=== PATIENT | male | born 1940 | race Two or more races ===

== ENCOUNTER 2018-06-28 13:43 | Observation (INO) | payer OTHER ==
--- NOTE | 2018-06-28 14:12 | PDOC ---
History of Present Illness - General Chief Complaint: Lightheaded Stated Complaint: DIZZINESS Time Seen by Provider: 06/28/18 14:11 History Source: Patient Exam Limitations: No Limitations - History of Present Illness Initial Comments: 06/28/18 15:06 77 year old man with a history of bph, cataracts, HLD, valvular problem who presents who presents with episode of dizziness at 1240 that occurred after he was carrying a chest from the garage to the backyard and after he was in the yard watering plants this morning. The patient had some diaphoresis and shortness of breath at the time of the episode but denies any chest pain or nausea. He reports drinking some coffee and crackers this morning, but he normally has a sandwich. He has had a recent cold and was self treating with over the counter medications. At bedside he has resolution of symptoms but notes feeling weakness that he quanitfies as 5/10 and some shortness of breath Denies diarrhea, constipation, dysuria, hematuria Associate Vice President: Alexander Past History - Past Medical History Allergies/Adverse Reactions: Allergies Allergy/AdvReac Type Severity Reaction Status Date / Time No Known Allergies Allergy Verified 06/28/18 14:29 Home Medications: Ambulatory Orders Aspirin [ASA -] 81 mg PO DAILY 06/28/18 Candesartan Cilexetil [Atacand -] 16 mg PO DAILY 06/28/18 Dutasteride/Tamsulosin HCl [Dutasteride-Tamsulosin 0.5-0.4] 1 each PO DAILY 08/11 Rosuvastatin Calcium 20 mg PO DAILY 06/28/18 Review of Systems - Review of Systems Able to Perform ROS?: Yes Comments:: 06/28/18 15:15 GENERAL/CONSTITUTIONAL: No fever or chills. HEAD, EYES, EARS, NOSE AND THROAT: No change in vision. No ear pain or discharge. No sore throat. CARDIOVASCULAR: No chest pain RESPIRATORY: No cough, wheezing, or hemoptysis. GASTROINTESTINAL: No nausea, vomiting, diarrhea or constipation. GENITOURINARY: No dysuria, frequency, or change in urination. MUSCULOSKELETAL: No joint or muscle swelling or pain. No neck or back pain. SKIN: No rash NEUROLOGIC: No headache, vertigo, loss of consciousness, or change in strength/ sensation. ENDOCRINE: No increased thirst. No abnormal weight change HEMATOLOGIC/LYMPHATIC: No anemia, easy bleeding, or history of blood clots. ALLERGIC/IMMUNOLOGIC: No hives or skin allergy. Is the patient limited Dutch proficient: No *Physical Exam - Physical Exam Comments: 06/28/18 15:15 GENERAL: Awake, alert, and fully oriented, in no acute distress HEAD: No signs of trauma, normocephalic, atraumatic EYES: EOMI, sclera anicteric, conjunctiva clear ENT: oropharynx clear without exudates. Moist mucosa NECK: Normal ROM, supple LUNGS: No distress, speaks full sentences, clear to auscultation bilaterally HEART: Regular rate and rhythm, normal S1 and S2, + systolic murmur, no rubs or gallops, peripheral pulses normal and equal bilaterally. ABDOMEN: Soft, nontender, normoactive bowel sounds. No guarding, no rebound. No masses EXTREMITIES : Normal inspection, Normal range of motion, no edema. No clubbing or cyanosis. NEUROLOGICAL: Cranial nerves II through XII grossly intact. Normal speech, no focal sensorimotor deficits SKIN: Warm, Dry, normal turgor, no rashes or lesions noted ED Treatment Course - LABORATORY CBC & Chemistry Diagram: 06/28/18 14:52 06/28/18 14:52 Medical Decision Making - Medical Decision Making 06/28/18 15:16 77 year old man with a history of bph, cataracts, HLD, valvular problem who presents who presents with episode of dizziness at 1240 that occurred after he was carrying a chest from the garage to the backyard and after he was in the yard watering plants this morning. ED Course: ddx ibnlt: acs vs arrythmia vs electrolyte derangement vs infectious vs dehydration cbc, cmp, mg, phos, tsh, ekg, cxr, ua, ucx Patient with hpoyensions recorded as 89/52 in triage but at bedside 105/58 will fluid bolus ivf, slow rate considering mitral valve issue EKG: normal sinus rhythm HR 58, narrow QRS, ST and T wave segments and morphology normal. 06/28/18 17:09 patient with small uti will dose rocephin patient reassessed, tahcycardic to 100s, hypotensive to 93/44 second liter ns started. patient with contonued hypotension and undstable vitals will require admission. unclear as to etiology of hypotension/shock consider infectious/sepsis - will check rectal temp hypovolemia - fluid resusc ongoing consider cardiogenic shock - patient with known valvular disorder, will repeat ekg, bedside echo withuot cardiac tamponade blood pressure equivicol on bilateral arms rectal temp of 99.9 will dose tylenol and draw blood cultures trop negative 06/28/18 19:[address] Matos who recommends patient go to ICU or Tele Case discussed with resident Dr. Espinal ICU who will admit patient for further management. *DC/Admit/Observation/Transfer Diagnosis at time of Disposition: Hypotension - Discharge Dispostion Condition at time of disposition: Stable Decision to Admit order: Yes - Referrals - Patient Instructions - Post Discharge Activity
--- NOTE | 2018-06-28 15:02 | PDOC ---
Documentation entered by Silvio Harrell SCRIBE, acting as scribe for Tabatha Aparicio MD. Tabatha Aparicio MD: This documentation has been prepared by the shraddhaibeJulio Cesar Daniel, SCRIBE, under my direction and personally reviewed by me in its entirety. I confirm that the documentation accurately reflects all work, treatment, procedures, and medical decision making performed by me. Attending Attestation - Resident Resident Name: Rose Higginbotham - ED Attending Attestation I have performed the following: I have examined & evaluated the patient, The case was reviewed & discussed with the resident, I agree w/resident's findings & plan, Exceptions are as noted - HPI HPI: 77 yo M history HTN, valvular problem (uncertain which valve, but family states he is planning for repair soon) presents with episode of lightheadedness. He states he did not eat breakfast like he normally does, had to carry a toy chest from garage to yard, felt lightheadedness. Symptoms have improved now. He did not eat anything since. Denies SOB, cp, leg swelling. - Physicial Exam PE: GENERAL: Awake, alert, and fully oriented, in no acute distress HEAD: No signs of trauma EYES: PERRLA, EOMI, sclera anicteric, conjunctiva clear ENT: Auricles normal inspection, hearing grossly normal, nares patent, oropharynx clear without exudates. Dry mucosa NECK: Normal ROM, supple, no lymphadenopathy, JVD, or masses LUNGS: Breath sounds equal, clear to auscultation bilaterally. No wheezes, and no crackles HEART: Regular rate and rhythm. +Systolic murmur best heard over 5th ICS. ABDOMEN: Soft, nontender, normoactive bowel sounds. No guarding, no rebound. No masses EXTREMITIES: Normal range of motion, no edema. No clubbing or cyanosis. No cords, erythema, or tenderness NEUROLOGICAL: Cranial nerves II through XII grossly intact. Normal speech, normal gait. Motor and sensation intact SKIN: Warm, Dry, normal turgor, no rashes or lesions noted. - Medical Decision Making Pt with hypotension on arrival, will give fluids.
[2018-06-28 15:04] LABS: BASO % 0.2 % (0-2.0); EOS % 3.5 % (0-4.5); HEMATOCRIT 40.5 % (35.4-49); HEMOGLOBIN 12.6 GM/dL (11.7-16.9); LYMPH % 7.4 % (8-40); MCH 22.1 pg (25.7-33.7); MCHC 31.1 g/dl (32.0-35.9); MEAN CELL VOLUME 71.2 fl (80-96); MEAN PLT VOLUME 9.7 fl (7.5-11.1); MONO % 10.1 % (3.8-10.2); NEUT % 78.8 % (42.8-82.8); PLATELET COUNT 133 K/MM3 (134-434); RBC 5.69 M/mm3 (4.00-5.60); RDW 15.8 % (11.9-15.9); WHITE BLOOD COUNT 6.6 K/mm3 (4.0-10.0)
--- NOTE | 2018-06-28 15:08 | EKG ---
Test Reason : Blood Pressure : / mmHG Vent. Rate : 076 BPM Atrial Rate : 076 BPM P-R Int : 174 ms QRS Dur : 102 ms QT Int : 394 ms P-R-T Axes : 063 044 043 degrees QTc Int : 443 ms NORMAL SINUS RHYTHM MODERATE VOLTAGE CRITERIA FOR LVH, MAY BE NORMAL VARIANT BORDERLINE ECG NO PREVIOUS ECGS AVAILABLE Confirmed by NICHOLAS WASSERMAN MD ([id number]) on 06/28/2018 3:08:15 PM Referred By: Confirmed By:NICHOLAS WASSERMAN MD
[2018-06-28 15:34] LABS: ALK PHOS 86 U/L (45-117); ANION GAP 5 MMOL/L (8-16); BILIRUBIN,TOTAL 0.2 mg/dL (0.2-1); BLOOD UREA NITROGEN 21 mg/dL (7-18); CALCIUM 9.1 mg/dL (8.5-10.1); CHLORIDE 105 mmol/L (98-107); CO2 27 mmol/L (21-32); CREATININE 1.2 mg/dL (0.55-1.3); GLUCOSE,RANDOM 96 mg/dL (74-106); POTASSIUM 4.8 mmol/L (3.5-5.1); SGOT/AST 29 U/L (15-37); SGPT/ALT 34 U/L (13-61); SODIUM 136 mmol/L (136-145); TOT PROT 7.4 g/dl (6.4-8.2)
[2018-06-28 15:39] LABS: MAGNESIUM 2.3 mg/dL (1.8-2.4); PHOSPHOROUS 2.9 mg/dL (2.5-4.9)
[2018-06-28 16:25] LABS: EPI CELLS 1.4 /HPF (0-5/HPF); URINE APPEARANCE CLEAR; URINE BACTERIA 2.4 /hpf (NEGATIVE); URINE BILIRUBIN NEGATIVE (NEGATIVE); URINE CASTS 9 /lpf (0-8); URINE COLOR YELLOW; URINE GLUCOSE (UA) NEGATIVE (NEGATIVE); URINE KETONE TRACE (NEGATIVE); URINE LEUK ESTERASE 1+ (NEGATIVE); URINE NITRITE NEGATIVE (NEGATIVE); URINE PROTEIN NEGATIVE (NEGATIVE); URINE RBC 2 /hpf (0-4); URINE UROBILINOGEN 0.2 mg/dL (0.2-1.0); URINE WBC 8 /hpf (0-5)
[2018-06-28] MEDS ORDERED: SODIUM CHLORIDE 1,000 ML IV SCH ×3 (16:30→23:15)
[2018-06-28] MEDS ORDERED: CEFTRIAXONE 1 GM/50 ML BAG ONE (17:13)
[2018-06-28] MEDS ORDERED: CEFTRIAXONE 1 GM in DEXTROSE 5%-WATER - 100 ML IVPB ONE (17:23)
[2018-06-28] MEDS ORDERED: ACETAMINOPHEN 1000 MG/100 ML VIAL (NON FORMULARY) IVPB ONE (17:32)
[2018-06-28] MEDS ORDERED: ACETAMINOPHEN INJECTION 100 ML IVPB ONE (17:33)
--- NOTE | 2018-06-28 20:24 | CONSULT ---
Consultation: REQUESTING PROVIDER: ED team CONSULT REQUEST: We have been asked to medically evaluate this patient for ( Hypotension/pre syncope ). HISTORY OF PRESENT ILLNESS: 77 year old male with h/o HTN , HLD, BPH, presented to the ED with dizziness and light headedness around 12.30 this afternoon ,pt reprots that he was squatting helping carrying some thing from the floor when he felt light headed and room spinning , family reports brief LOC less than a min , he spent 5 min working in the back yard, he reports recent common cold with dry cough but denies any fever, chills, deneis any N/V/D/C pt reports some sob during the episode but denies nay chest pain or palpitation pt denies any urinary symptoms he reports slight frontal headache with the dizziness. he follow up at [facility] out pt clinic , last seen one month ago , and he was placed on new BP meds PMHx: HTN,HLD, BPH PSH: Cataract FHX: Non contributory m his sister fo ruptured aneurysm Shx: denies tobacco, he drink alcohol socially , denies any drugs Allergies: NKDA REVIEW OF SYSTEMS: CONSTITUTIONAL: Absent: fever, chills, diaphoresis, generalized weakness, malaise, loss of appetite, weight change HEENT: Absent: rhinorrhea, nasal congestion, throat pain, throat swelling, difficulty swallowing, mouth swelling, ear pain, eye pain, visual changes CARDIOVASCULAR: Absent: chest pain, syncope, palpitations, irregular heart rate, lightheadedness , peripheral edema RESPIRATORY: Absent: cough, shortness of breath, dyspnea with exertion, orthopnea, wheezing, stridor, hemoptysis GASTROINTESTINAL: Absent: abdominal pain, abdominal distension, nausea, vomiting, diarrhea, constipation, melena, hematochezia GENITOURINARY: Absent: dysuria, frequency, urgency, hesitancy, hematuria, flank pain, genital pain MUSCULOSKELETAL: Absent: myalgia, arthralgia, joint swelling, back pain, neck pain SKIN: Absent: rash, itching, pallor HEMATOLOGIC/IMMUNOLOGIC: Absent: easy bleeding, easy bruising, lymphadenopathy, frequent infections ENDOCRINE: Absent: unexplained weight gain, unexplained weight loss, heat intolerance, cold intolerance NEUROLOGIC: Absent: headache, focal weakness or paresthesias, dizziness, unsteady gait, seizure, mental status changes, bladder or bowel incontinence PSYCHIATRIC: Absent: anxiety, depression, suicidal or homicidal ideation, hallucinations. PHYSICAL EXAMINATION Vital Signs - 24 hr 06/28/18 06/28/18 06/28/18 13:45 15:00 16:00 Temperature 97.8 F Pulse Rate 73 Pulse Rate [ 94 H 93 H Right Radial] Respiratory 16 16 18 Rate Blood Pressure 89/52 L Blood Pressure 95/59 L 106/49 L [Left Arm] O2 Sat by Pulse 97 98 100 Oximetry (%) 06/28/18 06/28/18 06/28/18 17:00 17:32 18:10 Temperature 99.9 F H Pulse Rate Pulse Rate [ 102 H 104 H 104 H Right Radial] Respiratory 19 19 19 Rate Blood Pressure Blood Pressure 93/44 L 98/47 L 107/57 L [Left Arm] O2 Sat by Pulse 100 100 98 Oximetry (%) 06/28/18 18:58 Temperature Pulse Rate Pulse Rate [ 102 H Right Radial] Respiratory 19 Rate Blood Pressure Blood Pressure 107/56 L [Left Arm] O2 Sat by Pulse 97 Oximetry (%) GENERAL: Awake, alert, and fully oriented, in no acute distress. HEAD: Normal with no signs of trauma. EYES: Pupils equal, round and reactive to light, extraocular movements intact, sclera anicteric, conjunctiva clear. EARS, NOSE, THROAT: Ears normal, nares patent, oropharynx clear without exudates.dry mucous membranes. NECK: Normal range of motion, supple without lymphadenopathy, JVD, or masses. LUNGS: Breath sounds equal, clear to auscultation bilaterally. No wheezes, and no crackles. No accessory muscle use. HEART: sinus tachy, normal S1 and S2 , 3/6 murmur RUSB , LUSB , ABDOMEN: Soft, nontender, not distended, normoactive bowel sounds, no guarding, no rebound, no masses. MUSCULOSKELETAL: Normal range of motion at all joints. No bony deformities or tenderness. No CVA tenderness. UPPER EXTREMITIES: 2+ pulses, warm, well-perfused. No cyanosis. No clubbing. Cap refill <2 seconds. No peripheral edema. LOWER EXTREMITIES: 2+ pulses, warm, well-perfused. No calf tenderness. No peripheral edema. NEUROLOGICAL: Cranial nerves II-XII intact. Normal speech. Normal gait. PSYCHIATRIC: Cooperative. Good eye contact. Appropriate mood and affect. SKIN: Warm, dry, normal turgor, Laboratory Results - last 24 hr 06/28/18 06/28/18 06/28/18 14:52 14:52 14:52 WBC 6.6 RBC 5.69 H Hgb 12.6 Hct 40.5 MCV 71.2 L MCH 22.1 L MCHC 31.1 L RDW 15.8 Plt Count 133 L MPV 9.7 Absolute Neuts (auto) 5.2 Neutrophils % 78.8 Lymphocytes % 7.4 L Monocytes % 10.1 Eosinophils % 3.5 Basophils % 0.2 Nucleated RBC % 0 Sodium 136 Potassium 4.8 Chloride 105 Carbon Dioxide 27 Anion Gap 5 L BUN 21 H Creatinine 1.2 Creat Clearance w eGFR 58.56 Random Glucose 96 Lactic Acid Calcium 9.1 Phosphorus 2.9 Magnesium 2.3 Total Bilirubin 0.2 AST 29 ALT 34 Alkaline Phosphatase 86 Troponin I Total Protein 7.4 Albumin 4.0 TSH 1.64 Urine Color Urine Appearance Urine pH Ur Specific [place] Urine Protein Urine Glucose (UA) Urine Ketones Urine Blood Urine Nitrite Urine Bilirubin Urine Urobilinogen Ur Leukocyte Esterase Urine WBC (Auto) Urine RBC (Auto) Urine Casts (Auto) U Epithel Cells (Auto) Urine Bacteria (Auto) 06/28/18 06/28/18 06/28/18 15:45 17:18 17:45 WBC RBC Hgb Hct MCV MCH MCHC RDW Plt Count MPV Absolute Neuts (auto) Neutrophils % Lymphocytes % Monocytes % Eosinophils % Basophils % Nucleated RBC % Sodium Potassium Chloride Carbon Dioxide Anion Gap BUN Creatinine Creat Clearance w eGFR Random Glucose Lactic Acid 1.6 Calcium Phosphorus Magnesium Total Bilirubin AST ALT Alkaline Phosphatase Troponin I < 0.02 Total Protein Albumin TSH Urine Color Yellow Urine Appearance Clear Urine pH 6.0 Ur Specific [place] 1.026 Urine Protein Negative Urine Glucose (UA) Negative Urine Ketones Trace H Urine Blood Negative Urine Nitrite Negative Urine Bilirubin Negative Urine Urobilinogen 0.2 Ur Leukocyte Esterase 1+ H Urine WBC (Auto) 8 Urine RBC (Auto) 2 Urine Casts (Auto) 9 U Epithel Cells (Auto) 1.4 Urine Bacteria (Auto) 2.4 Active Medications Generic Name Dose Route Start Last Admin Trade Name Freq PRN Reason Stop Dose Admin Sodium Chloride 1,000 mls @ 0 mls/hr 06/28/18 16:30 06/28/18 15:00 Normal Saline - IV 1,000 mls/hr ASDIR RADHA Administration Wide Open Sodium Chloride 1,000 mls @ 0 mls/hr 06/28/18 17:30 06/28/18 17:26 Normal Saline - IV 1,000 mls/hr ASDIR RADHA Administration Wide Open CBC, BMP 06/28/18 14:52 06/28/18 14:52 ASSESSMENT/PLAN: 77 year old male chengich speaking with pmhx of htn , hld, bph, valve disease ( family does not know 0presented to the ED today due to dizziness and was asked to be evaluated by ICU team for hypotension. # Hypotension/presyncope due to dehydration vs cardiogenic etiology #UTI meets SIRS criteria * presented with low BP improved with IV fluids 2 boluses continue NS @ 100 CC/ hr * felt dizzy today while squating carry some thing from the floor , , he felt room spinning ,reports LOC for less than a min, had similair episode last [address] [place] [address] he reports loc for 15 min. * [facility] please obtain records or repeat Echo , history of valvular disease with systolic murmur 3/3 RUSB, LUSB ) * carotid doppler * head CT * IV hydration * orthostatics negative after 2 L boluses , cont NS @ 100 CC/hr * r.o infection , UTI with +1 LE but wbc 8 only , was given abx in ED , continue * monitor BP q 2 hr , maintain Map > 65 * tele monitor , no need for icu at this point as pt is hemodynamically stable and improved with IV fluids * hold all BP medicine * unlikely CVA/TIA has no focal deficit , strength 5/5 upper and lower ext * cont ASA Dispo: We will continue to follow the patient. Thank you for this consultative opportunity. Visit type - Emergency Visit Emergency Visit: Yes ED Registration Date: 06/28/18 Care time: The patient presented to the Emergency Department on the above date and was hospitalized for further evaluation of their emergent condition. - New Patient This patient is new to me today: Yes Date on this admission: 06/28/18 - Critical Care Critical Care patient: Yes Total Critical Care Time (in minutes): 45 Critical Care Statement: The care of this patient involved high complexity decision making to prevent further life threatening deterioration of the patient 's condition and/or to evaluate & treat vital organ system(s) failure or risk of failure.
--- NOTE | 2018-06-28 20:42 | HP ---
Admitting History and Physical - Primary Care Physician PCP: Irais Matos - Admission History of Present Illness: 77 year old man with a history of bph, cataracts, HLD, valvular problem who presents who presents with episode of dizziness at 1240 that occurred after he was carrying a chest from the garage to the backyard and after he was in the yard watering plants this morning. The patient had some diaphoresis and shortness of breath at the time of the episode but denies any chest pain or nausea. He reports drinking some coffee and crackers this morning, but he normally has a sandwich. He has had a recent cold and was self treating with over the counter medications. feels much better now - Past Medical History Cardiovascular: Yes: Hyperlipdemia - Smoking History Smoking history: Never smoked Have you smoked in the past 12 months: No - Alcohol/Substance Use Hx Alcohol Use: No Home Medications - Allergies Allergies/Adverse Reactions: Allergies Allergy/AdvReac Type Severity Reaction Status Date / Time No Known Allergies Allergy Verified 06/28/18 14:29 - Home Medications Home Medications: Ambulatory Orders Aspirin [ASA -] 81 mg PO DAILY 06/28/18 Candesartan Cilexetil [Atacand -] 16 mg PO DAILY 06/28/18 Dutasteride/Tamsulosin HCl [Dutasteride-Tamsulosin 0.5-0.4] 1 each PO DAILY 08/11 Rosuvastatin Calcium 20 mg PO DAILY 06/28/18 Amoxicillin/Potassium Clav [Augmentin 875-125 Tablet] 1 each PO BID #14 tablet 06/29/18 Physical Examination Vital Signs: Vital Signs Temperature 99.9 F H 06/28/18 17:32 Pulse Rate 102 H 06/28/18 18:58 Respiratory Rate 06/28/18 18:58 Blood Pressure 107/56 L 06/28/18 18:58 O2 Sat by Pulse Oximetry (%) 97 06/28/18 18:58 Constitutional: Yes: No Distress HENT: Yes: Atraumatic Neck: Yes: Supple Cardiovascular: Yes: Regular Rate and Rhythm Respiratory: Yes: CTA Bilaterally Gastrointestinal: Yes: Normal Bowel Sounds Extremities: Yes: WNL Edema: No Peripheral Pulses WNL: Yes Neurological: Yes: Alert, Oriented Labs: CBC, BMP 06/28/18 14:52 06/28/18 14:52 Imaging - Results X-ray: Report Reviewed Problem List - Problems (1) Hypotension Assessment/Plan: monitor fu cardiac profile cardiology consult Code(s): I95.9 - HYPOTENSION, UNSPECIFIED (2) UTI (urinary tract infection) Assessment/Plan: asymptomatic will put him on po monitor wbc Code(s): N39.0 - URINARY TRACT INFECTION, SITE NOT SPECIFIED Assessment/Plan Laboratory Tests 06/28/18 06/28/18 06/28/18 14:52 14:52 14:52 WBC 6.6 RBC 5.69 H Hgb 12.6 Hct 40.5 MCV 71.2 L MCH 22.1 L MCHC 31.1 L RDW 15.8 Plt Count 133 L MPV 9.7 Absolute Neuts (auto) 5.2 Neutrophils % 78.8 Lymphocytes % 7.4 L Monocytes % 10.1 Eosinophils % 3.5 Basophils % 0.2 Nucleated RBC % 0 Sodium 136 Potassium 4.8 Chloride 105 Carbon Dioxide 27 Anion Gap 5 L BUN 21 H Creatinine 1.2 Creat Clearance w eGFR 58.56 Random Glucose 96 Lactic Acid Calcium 9.1 Phosphorus 2.9 Magnesium 2.3 Total Bilirubin 0.2 AST 29 ALT 34 Alkaline Phosphatase 86 Troponin I Total Protein 7.4 Albumin 4.0 TSH 1.64 Urine Color Urine Appearance Urine pH Ur Specific [place] Urine Protein Urine Glucose (UA) Urine Ketones Urine Blood Urine Nitrite Urine Bilirubin Urine Urobilinogen Ur Leukocyte Esterase Urine WBC (Auto) Urine RBC (Auto) Urine Casts (Auto) U Epithel Cells (Auto) Urine Bacteria (Auto) 06/28/18 06/28/18 06/28/18 15:45 17:18 17:45 WBC RBC Hgb Hct MCV MCH MCHC RDW Plt Count MPV Absolute Neuts (auto) Neutrophils % Lymphocytes % Monocytes % Eosinophils % Basophils % Nucleated RBC % Sodium Potassium Chloride Carbon Dioxide Anion Gap BUN Creatinine Creat Clearance w eGFR Random Glucose Lactic Acid 1.6 Calcium Phosphorus Magnesium Total Bilirubin AST ALT Alkaline Phosphatase Troponin I < 0.02 Total Protein Albumin TSH Urine Color Yellow Urine Appearance Clear Urine pH 6.0 Ur Specific [place] 1.026 Urine Protein Negative Urine Glucose (UA) Negative Urine Ketones Trace H Urine Blood Negative Urine Nitrite Negative Urine Bilirubin Negative Urine Urobilinogen 0.2 Ur Leukocyte Esterase 1+ H Urine WBC (Auto) 8 Urine RBC (Auto) 2 Urine Casts (Auto) 9 U Epithel Cells (Auto) 1.4 Urine Bacteria (Auto) 2.4 Active Medications Generic Name Dose Route Start Last Admin Trade Name Freq PRN Reason Stop Dose Admin Sodium Chloride 1,000 mls @ 0 mls/hr 06/28/18 16:30 06/28/18 15:00 Normal Saline - IV 1,000 mls/hr ASDIR RADHA Administration Wide Open Sodium Chloride 1,000 mls @ 0 mls/hr 06/28/18 17:30 06/28/18 17:26 Normal Saline - IV 1,000 mls/hr ASDIR RADHA Administration Wide Open Active Medications Generic Name Dose Route Start Last Admin Trade Name Freq PRN Reason Stop Dose Admin Aspirin 81 mg 06/29/18 10:00 06/29/18 11:00 Asa - PO 81 mg DAILY RADHA Administration Sodium Chloride 1,000 mls @ 75 mls/hr 06/28/18 23:15 06/28/18 23:23 Normal Saline - IV 75 mls/hr ASDIR RADHA Administration Rosuvastatin Calcium 20 mg 06/29/18 22:00 Crestor - PO HS RADHA Valsartan 160 mg 06/29/18 10:00 06/29/18 11:00 Diovan - PO 160 mg DAILY RADHA Administration
[2018-06-28 22:32] LABS: ALBUMIN 2.5 g/dl (3.4-5.0); ALK PHOS 54 U/L (45-117); ANION GAP 5 MMOL/L (8-16); BILIRUBIN,TOTAL 0.2 mg/dL (0.2-1); BLOOD UREA NITROGEN 17 mg/dL (7-18); CHLORIDE 115 mmol/L (98-107); CO2 22 mmol/L (21-32); GLUCOSE,RANDOM 78 mg/dL (74-106); POTASSIUM 3.5 mmol/L (3.5-5.1); SGOT/AST 18 U/L (15-37); SGPT/ALT 22 U/L (13-61); SODIUM 142 mmol/L (136-145); TOT PROT 4.8 g/dl (6.4-8.2)
[2018-06-28 22:35] LABS: CALCIUM 6.6 mg/dL (8.5-10.1)
[2018-06-29 06:30] LABS: BASO % 0.4 % (0-2.0); EOS % 3.7 % (0-4.5); HEMATOCRIT 34.3 % (35.4-49); LYMPH % 16.9 % (8-40); MCH 22.5 pg (25.7-33.7); MEAN CELL VOLUME 70.4 fl (80-96); MEAN PLT VOLUME 9.6 fl (7.5-11.1); MONO % 21.7 % (3.8-10.2); NEUT % 57.3 % (42.8-82.8); PLATELET COUNT 128 K/MM3 (134-434); RBC 4.87 M/mm3 (4.00-5.60); RDW 15.9 % (11.9-15.9); WHITE BLOOD COUNT 4.6 K/mm3 (4.0-10.0)
[2018-06-29] MEDS ORDERED: VALSARTAN 160 MG TABLET (UD) PO SCH (10:00)
[2018-06-29] MEDS ORDERED: ASPIRIN 81 MG CHEWABLE TABLETS PO SCH (10:00)
[2018-06-29] MEDS ORDERED: CANDESARTAN CILEXETIL 16 MG PO SCH (10:00)
--- NOTE | 2018-06-29 10:49 | ECHO ---
Name: LORETO ZHANG Exam:Adult Echocardiogram Study Date: 06/29/2018 08:50 AM Age: 77 yrs Reason For Study: SYNCOPE Height: 66 in Weight: 145 lb BSA: 1.7 m2 MMode/2D Measurements & Calculations IVSd: 0.73 cm Ao root diam: 3.2 cm LVIDd: 4.7 cm LA dimension: 3.0 cm LVIDs: 3.1 cm LVPWd: 0.67 cm EDV(Teich): 101.2 ml MV Diam: 2.7 cm ESV(Teich): 39.1 ml LVOT diam: 1.9 cm Doppler Measurements & Calculations Ao V2 max: 143.5 cm/sec MVA(VTI): 2.3 cm2 Ao max P.2 mmHg MV V2 max: 122.2 cm/sec Ao V2 mean: 98.1 cm/sec MV max P.0 mmHg Ao mean P.4 mmHg MV V2 mean: 80.5 cm/sec Ao V2 VTI: 29.4 cm MV mean P.1 mmHg MV V2 VTI: 25.2 cm MATHIEU(I,D): 2.0 cm2 MV area (1 diam): 5.9 cm2 AI P1/2t: 372.7 msec MV Flow area(1diam): 5.9 cm2 MATHIEU(V,D): 2.0 cm2 AI max arnav: 429.1 cm/sec LV V1 max P.7 mmHg AI max P.8 mmHg LV V1 mean P.0 mmHg LV V1 max: 96.7 cm/sec AI dec slope: 337.2 cm/sec2 LV V1 mean: 65.7 cm/sec LV V1 VTI: 19.4 cm MR max arnav: 516.9 cm/sec MR(RF 1 diam): 13.6 % MR max P.9 mmHg SV(MV 1 diam): 148.9 ml TR max arnav: 295.5 cm/sec SI(MV 1 diam): 85.3 ml/m2 TR max P.0 mmHg SV(LVOT): 57.7 ml Lat Peak E' Arnav: 9.9 cm/sec RF(MV,Ao)(1 diam): -0.60 RF(MV,LVOT)(1diam): 0.61 Procedure A complete two-dimensional transthoracic echocardiogram was performed (2D, M-mode, Doppler and color flow Doppler). Left Ventricle The left ventricular size, thickness and function are normal. Ejection Fraction = 65%. The transmitra l spectral Doppler flow pattern is suggestive of impaired LV relaxation. The left ventricular wall howard on is normal. Right Ventricle The right ventricle is normal in size and function. Atria Normal left and right atrial size and function. Mitral Valve Prolapse of the posterior mitral leaflet(s). The mitral regurgitant jet is eccentrically directed. Th ere is moderate to severe mitral regurgitation. Tricuspid Valve The tricuspid valve is normal in structure and function. There is mild tricuspid regurgitation. Right ventricular systolic pressure is elevated at 30-40mmHg. There is mild pulmonary hypertension. Aortic Valve The aortic valve is normal in structure and function. Mild to moderate aortic regurgitation. Pulmonic Valve The pulmonic valve is not well visualized. Great Vessels The aortic root is normal size. Pericardium/Pleura There is no pericardial effusion. There is no pleural effusion. Interpretation Summary The left ventricular size, thickness and function are normal Ejection Fraction = 65%. The right ventricle is normal in size and function. Prolapse of the posterior mitral leaflet(s). The mitral regurgitant jet is eccentrically directed. There is moderate to severe mitral regurgitation. There is mild tricuspid regurgitation. Right ventricular systolic pressure is elevated at 30-40mmHg. There is mild pulmonary hypertension. Mild to moderate aortic regurgitation. MD Romain Dias 06/29/2018 10:48 AM
[2018-06-29 11:25] LABS: ANISOCYTOSIS 1+; MACROCYTOSIS 0; OVALOCYTE 1+; PLATELET ESTIMATE DECREASED
--- NOTE | 2018-06-29 11:38 | EKG ---
Test Reason : Blood Pressure : / mmHG Vent. Rate : 103 BPM Atrial Rate : 103 BPM P-R Int : 210 ms QRS Dur : 092 ms QT Int : 350 ms P-R-T Axes : 062 025 049 degrees QTc Int : 458 ms SINUS TACHYCARDIA WITH 1ST DEGREE A-V BLOCK NONSPECIFIC T WAVE ABNORMALITY ABNORMAL ECG Confirmed by Romain Dias MD ([id number]) on 06/29/2018 11:38:33 AM Referred By: Confirmed By:Romain Dias MD
--- NOTE | 2018-06-29 14:04 | CON.CARD ---
Consult Consult Specialty:: Cardiology Referred by:: Dr. Matos Reason for Consultation:: Cardiac evaluation - History of Present Illness Chief Complaint: Dizziness History of Present Illness: Patient is a 77 year old male with underlying history of BPH, HTN and hypercholesterolemia who presents with episode of dizziness while carrying a chest. He complained of diaphoresis and shortness of breath. Currently, he denies chest pain, SOB or palpitations. He denies paroxysmal nocturnal dyspnea or orthopnea. He denies fever or chills. He denies nausea, vomiting, diarrhea or abdominal pain. He denies headache or lightheadedness. - History Source History Provided By: Patient, Family Member, Medical Record Limitations to Obtaining History: No Limitations - Past Medical History Cardio/Vascular: Yes: HTN, Hyperlipdemia Renal/: Yes: BPH - Alcohol/Substance Use Hx Alcohol Use: No History of Substance Use: reports: None - Smoking History Smoking history: Never smoked Have you smoked in the past 12 months: No Home Medications - Allergies Allergies/Adverse Reactions: Allergies Allergy/AdvReac Type Severity Reaction Status Date / Time No Known Allergies Allergy Verified 06/28/18 14:29 - Home Medications Home Medications: Ambulatory Orders Aspirin [ASA -] 81 mg PO DAILY 06/28/18 Candesartan Cilexetil [Atacand -] 16 mg PO DAILY 06/28/18 Dutasteride/Tamsulosin HCl [Dutasteride-Tamsulosin 0.5-0.4] 1 each PO DAILY 08/11 Rosuvastatin Calcium 20 mg PO DAILY 06/28/18 Family Disease History - Family Disease History Other Family History: History of HTN Review of Systems - Review of Systems Constitutional: denies: Chills, Fever Cardiovascular: reports: Shortness of Breath. denies: Chest Pain, Palpitations Respiratory: reports: SOB. denies: Cough, Hemoptysis, Orthopnea, SOB on Exertion Gastrointestinal: denies: Abdominal Pain, Constipation, Diarrhea, Melena, Nausea , Rectal Bleeding, Vomiting Musculoskeletal: denies: Back Pain, Joint Pain Neurological: reports: Dizziness. denies: Headache, Seizure, Syncope Vital Signs: Vital Signs Temperature 99.2 F 06/29/18 05:44 Pulse Rate 95 H 06/29/18 11:00 Respiratory Rate 18 06/29/18 11:00 Blood Pressure 121/60 06/29/18 11:00 O2 Sat by Pulse Oximetry (%) 97 06/29/18 11:00 Eyes: Yes: PERRL HENT: Yes: Atraumatic Neck: Yes: Supple Respiratory: Yes: CTA Bilaterally Gastrointestinal: Yes: Normal Bowel Sounds, Soft. No: Tenderness Cardiovascular: Yes: Regular Rate and Rhythm JVD: No Carotid Bruit: No PMI: Non-Displaced Heart Sounds: Yes: S1, S2 Murmur: Yes: Systolic Murmur, Grade 2 Edema: No - Other Data Labs, Other Data: CBC, BMP 06/29/18 05:30 06/28/18 21:27 Troponin, BNP 06/28/18 06/28/18 17:45 21:27 Troponin I < 0.02 < 0.02 Sinus tachycardia, nonspecific T abnormality Imaging - Results Chest X-ray: Report Reviewed (Unremarkable) EKG: Report Reviewed Problem List - Problems (1) HTN (hypertension) Code(s): I10 - ESSENTIAL (PRIMARY) HYPERTENSION (2) Hypercholesterolemia Code(s): E78.00 - PURE HYPERCHOLESTEROLEMIA, UNSPECIFIED (3) BPH (benign prostatic hyperplasia) Code(s): N40.0 - BENIGN PROSTATIC HYPERPLASIA WITHOUT LOWER URINRY TRACT SYMP (4) Dizziness Code(s): R42 - DIZZINESS AND GIDDINESS (5) Shortness of breath Code(s): R06.02 - SHORTNESS OF BREATH Assessment/Plan 1. Dizziness 2. Dyspnea, etiology to be determined 3. HTN 4. Hypercholesterolemia 5. BPH 6. Heart murmur rule out valvular heart disease PLAN: 1. Continue with Candesartan as tolerated (given Diovan in the ER) 2. Statin therapy (Rosuvastatin) 3. Echocardiography to assess LV/RV and valvular function 4. Troponins are negative If above does not reveal any significant findings, may discharge home and follow up as outpatient Scar Pratt MD
--- NOTE | 2018-06-29 16:44 | DS ---
Physical Examination Vital Signs: Vital Signs Temperature 99.2 F 06/29/18 05:44 Pulse Rate 70 06/29/18 15:46 Respiratory Rate 18 06/29/18 15:46 Blood Pressure 128/50 L 06/29/18 15:46 O2 Sat by Pulse Oximetry (%) 99 06/29/18 15:46 Constitutional: Yes: No Distress HENT: Yes: Atraumatic Neck: Yes: Supple Cardiovascular: Yes: Regular Rate and Rhythm Respiratory: Yes: CTA Bilaterally Gastrointestinal: Yes: Normal Bowel Sounds Extremities: Yes: WNL Labs: CBC, BMP 06/29/18 05:30 06/28/18 21:27 Discharge Summary Reason For Visit: HYPOTENSION Current Active Problems BPH (benign prostatic hyperplasia) (Acute) Dizziness (Acute) HTN (hypertension) (Acute) Hypercholesterolemia (Acute) Hypotension (Acute) Shortness of breath (Acute) UTI (urinary tract infection) (Acute) Condition: Stable - Instructions - Home Medications Comprehensive Discharge Medication List: Ambulatory Orders Aspirin [ASA -] 81 mg PO DAILY 06/28/18 Candesartan Cilexetil [Atacand -] 16 mg PO DAILY 06/28/18 Dutasteride/Tamsulosin HCl [Dutasteride-Tamsulosin 0.5-0.4] 1 each PO DAILY 08/11 Rosuvastatin Calcium 20 mg PO DAILY 06/28/18 Amoxicillin/Potassium Clav [Augmentin 875-125 Tablet] 1 each PO BID #14 tablet 06/29/18 echo done report reviewed dc if cleared by cardiology will put him on po abx for mild uti fu pmd/cxs
[2018-06-29 18:07] VITALS: BP 133/72; PULSE 91; TEMP 98.8; BMI 25.0
[2018-06-29] MEDS ORDERED: ROSUVASTATIN CA 20 MG TABLET (FP) PO SCH (22:00)
== END 2018-06-29 19:17 | disposition home or self-care (01) ==
LOC: JER 13:43 → JERBED 19:08 → INTOOBSV 19:08 → J4S 06-29 16:38
PROVIDERS: ADMIT Internal Medicine; ATTEND Internal Medicine
PROC: 3E03329 Introduction of Other Anti-infective into Peripheral Vein, Percutaneous Approach (ICD-10-PCS; principal; 2018-06-28)
PROC: 3E0337Z Introduction of Electrolytic and Water Balance Substance into Peripheral Vein, Percutaneous Approach (ICD-10-PCS; 2018-06-28)
DX: I95.9 Hypotension, unspecified (principal); E78.5 Hyperlipidemia, unspecified; N40.0 Benign prostatic hyperplasia without lower urinary tract symptoms; H26.9 Unspecified cataract; Z79.82 Long term (current) use of aspirin; I10 Essential (primary) hypertension; R42 Dizziness and giddiness; R06.02 Shortness of breath
CPT/HCPCS: 36415; 71045-TC-FY; 80053; 81003; 82550; 83605; 83735; 84100; 84443; 84484; 85025; 87040; 87086; 93005; 93010; 93306-TC; 96365; 96375; 99285-25; G0378; J0131; J7030